=== PATIENT | male | born 1970 | race Caucasian/White ===

== ENCOUNTER 2021-09-17 17:54 | Emergency (ER) | payer OTHER ==
[2021-09-17 18:24] VITALS: BP 119/87; PULSE 82; TEMP 98; BMI 29.6
== END 2021-09-17 19:26 | disposition home or self-care (01) ==
LOC: JERFT 17:54 → JER 17:54 → JERFT 19:26
DX: Z11.52 Encounter for screening for COVID-19 (principal)
CPT/HCPCS: 99283-25; C9803; U0003; U0005

== ENCOUNTER 2021-11-28 14:21 | Emergency (ER) | payer BC, OTHER | END 2021-11-28 19:12 | disposition home or self-care (01) | LOC: JVIRT 14:21 | DX: Z20.822 Contact with and (suspected) exposure to COVID-19 (principal) | CPT/HCPCS: C9803; Q3014-GT; U0003; U0005 ==